=== PATIENT | male | born 1965 | race American Indian/Alaskan Native ===

== ENCOUNTER 2020-12-05 00:31 | Emergency (ER) | payer BC ==
--- NOTE | 2020-12-05 01:13 | Emergency Department Report ---
ED Chest Pain HPI - General Stated Complaint: ACID REFLUX, CHEST PAIN Time Seen by Provider: 12/05/20 00:53 - History of Present Illness Initial Comments: This is a 55-year-old -[place] male presents to the emergency department with complaint of some midsternal chest pain that he describes as a burning sensation that started earlier this evening. The patient was concerned as this type of chest discomfort was the same pain that he felt in 2017 when the patient was diagnosed with an FL. 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 The patient has a history of very mild CKD. Patient is from [place]. Yesterday he flew from [place] to [place], then drove from [place] to [place], and was supposed to leave in a few hours to drive back to [place]. He went out for dinner this evening and had a meal that he says "did not sit well" and caused him to have some increased gas and the burning sensation. He also had some scotch and wine. Patient took a Ewa aspirin. He says that his symptoms resolved just prior to presentation. He denies any shortness of breath, nausea with vomiting, diaphoresis, lower extremity swelling, back pain, abdominal pain. - Related Data Allergies Allergy/AdvReac Type Severity Reaction Status Date / Time lisinopril Allergy Intermediate Unknown Verified 12/05/20 01:13 Heart Score - HEART Score History: Slightly suspicious EKG: Normal Age: 45-65 Risk factors: 1-2 risk factors Troponin: < normal limit HEART Score: 2 - EKG Read Time Time EKG Completed: 00:49 EKG Read Time: 00:55 ED Review of Systems ROS: Stated complaint: ACID REFLUX, CHEST PAIN Other details as noted in HPI Comment: All other systems reviewed and negative Constitutional: denies: chills, fever Eyes: denies: eye pain, vision change ENT: denies: ear pain, throat pain Respiratory: denies: cough, shortness of breath Cardiovascular: chest pain. denies: palpitations Gastrointestinal: denies: abdominal pain, vomiting Genitourinary: denies: dysuria, discharge Musculoskeletal: denies: back pain, arthralgia Skin: denies: rash, lesions Neurological: denies: headache, weakness ED Physical Exam - Other Other exam information: GENERAL: The patient is well-developed well-nourished. HENT: Normocephalic. Atraumatic. Patient has moist mucous membranes. EYES: Extraocular motions are intact. NECK: Supple. Trachea is midline. CHEST/LUNGS: Clear to auscultation. There is no respiratory distress noted. HEART/CARDIOVASCULAR: Regular. There is no tachycardia. There is no murmur. ABDOMEN: Abdomen is soft, nontender. Patient has normal bowel sounds. There is no abdominal distention. SKIN: Skin is warm and dry. NEURO: The patient is awake, alert, and oriented. The patient is cooperative. The patient has no focal neurologic deficits. Normal speech. MUSCULOSKELETAL: There is no tenderness or deformity. There is no limitation range of motion. ED Course Vital Signs 12/05/20 12/05/20 12/05/20 01:00 02:00 03:00 Temperature 98.4 F Pulse Rate 73 66 64 Respiratory 12 13 13 Rate Blood Pressure 134/78 132/83 139/84 O2 Sat by Pulse 99 97 98 Oximetry THIERRY score - Thierry Score Age > 65: (0) No Aspirin use within the Past 7 Days: (1) Yes 3 or more CAD Risk Factors: (0) No 2 or more Angina events in past 24 hrs: (1) Yes (If pain is considered angina) Known CAD with more than 50% Stenosis: (0) No Elevated Cardiac Markers: (0) No ST Deviation Greater than 0.5mm: (0) No THIERRY Score: 2 ED Medical Decision Making - Lab Data Result diagrams: 12/05/20 01:15 12/05/20 01:15 - EKG Data -: EKG Interpreted by Me EKG shows normal: sinus rhythm, axis, intervals (Prolonged PA interval), QRS complexes, ST-T waves Rate: normal - EKG Data When compared to previous EKG there are: previous EKG unavailable Interpretation: other (Sinus rhythm at 65 bpm, normal axis, prolonged PA interval. No ST elevation FL.) - Radiology Data Radiology results: image reviewed interpreted by me: Chest x-ray does not show any acute process. There are no pleural effusions, obvious pneumonia and there is no pneumothorax. No widened mediastinum. - Medical Decision Making This patient presents to the emergency department with a complaint of some midsternal chest burning pain that has been going on since last night. EKG does not have any morphology consistent with ST elevation myocardial infarction. Chest x-ray does not show any pneumonia, pleural effusions, pneumothorax, widened mediastinum, or any other acute process. Labs have thus far been unremarkable including CBC, metabolic panel and a negative troponin. Initially the patient presented asymptomatic. The symptoms came back slightly shortly after my H&P. He was given a GI cocktail and once again the symptoms resolved. I wanted to get a second troponin on this patient, but the patient no longer wants any further evaluation and is asking to be discharged. I explained that I like to trend the troponins as the first troponin does not always positive in coronary artery disease or ACS. I explained that leaving at this time could lead to undiagnosed FL, return of chest pain, or even debility or . The patient is awake, alert, oriented and has a normal decision-making capacity. Therefore, despite understanding the risks, he has still signed out AGAINST MEDICAL ADVICE. He understands that he can return to the emergency department if he changes his mind about further evaluation, or with any acute distress. Critical Care Time: No Critical care attestation.: If time is entered above; I have spent that time in minutes in the direct care of this critically ill patient, excluding procedure time. ED Disposition Clinical Impression: Atypical chest pain Disposition: DC-07 LEFT AGAINST MED ADVICE Is pt being admited?: No Condition: Stable Instructions: Nonspecific Chest Pain, Adult Additional Instructions: Please return to the emergency department if you change your mind about further evaluation, with return of your chest pain, or with any acute distress. Please follow-up with your doctors as soon as you return to [place]. Referrals: PRIMARY CAREMD [Primary Care Provider] - 3-5 Days Forms: AMA Form
[2020-12-05] MEDS ORDERED: LIDOCAINE VISCOUS 2% 15 ML ORAL LIQD PO ONE (01:22)
[2020-12-05] MEDS ORDERED: ALUM-MAG HYDROXIDE-SIMETHICONE 200-200-20MG/5ML ORAL LIQD 30 ML PO ONE (01:22)
[2020-12-05 01:48] LABS: Basophils % (Auto) 0.4 % (0.0-1.8); Eosinophils # (Auto) 0.1 K/mm3 (0.0-0.4); Eosinophils % (Auto) 1.9 % (0.0-4.3); Hematocrit 43.9 % (35.5-45.6); Hemoglobin 14.3 gm/dl (11.8-15.2); Lymphocytes # (Auto) 1.7 K/mm3 (1.2-5.4); Mean Corpuscular HGB Conc 33 % (32-34); Mean Corpuscular Volume 93 fl (84-94); Monocytes # (Auto) 0.4 K/mm3 (0.0-0.8); Platelet Count 196 K/mm3 (140-440); Red Blood Count 4.72 M/mm3 (3.65-5.03); Red Cell Distribution Width 13.8 % (13.2-15.2)
--- NOTE | 2020-12-05 02:06 | XRay Report ---
XR chest 1V ap INDICATION / CLINICAL INFORMATION: CP. COMPARISON: None available. FINDINGS: SUPPORT DEVICES: None. HEART /PULMONARY VASCULATURE: No significant abnormality. LUNGS / PLEURA: No significant pulmonary or pleural abnormality. No pneumothorax. ADDITIONAL FINDINGS: No significant additional findings. IMPRESSION: 1. No acute findings. Signer Name: Gareth Crockett MD Signed: 12/05/2020 2:01 AM Workstation Name: [id number]
[2020-12-05 02:14] LABS: Alanine Aminotransferase 11 units/L (7-56); Albumin 4.3 g/dL (3.9-5); BUN/Creatinine Ratio 10; Blood Urea Nitrogen 12 mg/dL (9-20); Hemolysis Index 5
[2020-12-05 03:57] VITALS: BP 139/84
--- NOTE | 2020-12-05 11:19 | Electrocardiograph Report ---
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
== END 2020-12-05 03:55 | disposition left against medical advice (07) ==
LOC: ED 00:31
DX: R07.89 Other chest pain (principal); Z88.8 Allergy status to other drugs, medicaments and biological substances
CPT/HCPCS: 36415; 71045; 80053; 84484; 85025; 93005